=== PATIENT | male | born 1990 | race Two or more races ===

== ENCOUNTER 2023-05-01 12:59 | Emergency (ER) | payer OTHER ==
[~2023-05-01] VITALS: Ht 170.2 cm; Wt 83.5 kg
[2023-05-01] MEDS ORDERED: DUI500 PO (15:21)
== END 2023-05-01 15:30 | disposition home or self-care (01) ==
LOC: ER 12:59
DX: S81.811A Laceration without foreign body, right lower leg, initial encounter (principal); W45.8XXA Other foreign body or object entering through skin, initial encounter; Y93.89 Activity, other specified; Y92.89 Other specified places as the place of occurrence of the external cause; Y99.9 Unspecified external cause status; R56.9 Unspecified convulsions